=== PATIENT | female | born 1955 | race Caucasian/White ===

== ENCOUNTER 2020-09-07 23:17 | Emergency (ER) | payer BC, MEDICARE ==
[2020-09-07 23:20] VITALS: BP 146/68; PULSE 73
[2020-09-07] MEDS ORDERED: Sodium Chloride 0.9% 10 ML Syringe FLUSH PRN (23:23)
[2020-09-07] MEDS ORDERED: Sodium Chloride 0.9% 1,000 ML IV SCH (23:30)
[2020-09-08] MEDS ORDERED: Potassium Chloride 20 MEQ Tab.ER PO ONE (00:20)
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
== END 2020-09-08 01:44 | disposition home or self-care (01) ==
LOC: JP.ED 23:17
DX: R25.2 Cramp and spasm (principal); E86.0 Dehydration; E87.6 Hypokalemia; J45.909 Unspecified asthma, uncomplicated; M79.7 Fibromyalgia; I10 Essential (primary) hypertension; E05.90 Thyrotoxicosis, unspecified without thyrotoxic crisis or storm; Z88.1 Allergy status to other antibiotic agents; Z88.5 Allergy status to narcotic agent; Z88.8 Allergy status to other drugs, medicaments and biological substances; Z88.0 Allergy status to penicillin; Z79.82 Long term (current) use of aspirin; Z79.899 Other long term (current) drug therapy
CPT/HCPCS: 36415; 80048; 83735; 99283; A9270; J7030

== ENCOUNTER 2020-09-25 04:33 | Emergency (ER) | payer BC, MEDICARE ==
[2020-09-25 04:47] VITALS: BP 148/96; PULSE 99
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
[2020-09-25] MEDS ORDERED: methylPREDNISolone Sodium Succinate 125 MG/2 ML SDV IM ONE (05:02)
[2020-09-25] MEDS ORDERED: hydrOXYzine HCl 25 MG Tab PO ONE (05:02)
== END 2020-09-25 05:54 | disposition home or self-care (01) ==
LOC: JP.ED 04:33
DX: L50.9 Urticaria, unspecified (principal); L29.9 Pruritus, unspecified; E03.9 Hypothyroidism, unspecified; Z79.899 Other long term (current) drug therapy; Z88.1 Allergy status to other antibiotic agents; Z88.5 Allergy status to narcotic agent; Z88.0 Allergy status to penicillin; Z88.8 Allergy status to other drugs, medicaments and biological substances; Z79.82 Long term (current) use of aspirin
CPT/HCPCS: 96372; 99282; A9270; J2930